=== PATIENT | male | born 1960 | race African-American/Black ===

== ENCOUNTER 2017-07-06 13:47 | Outpatient (CLI) | payer MEDICARE ==
--- NOTE | 2017-07-06 20:31 | RAD ---
RIGHT KNEE TWO VIEWS 07/06/17 No acute fracture or joint effusion was seen. There is fragmentation of the anterior tibial tubercle which is probably old, possibly even old [place]-Schlatter's. Minimal medial joint space narrowing is present but there is no substantial degenerative change. Faint calcification is seen in the popliteal artery. IMPRESSION: Chronic changes but no acute findings. POS: HOME
--- NOTE | 2017-07-06 20:33 | RAD ---
LEFT KNEE TWO VIEWS 07/06/17 Comparison is made with the 05/18/14 study. Again seen are findings of osteoarthritis consisting of medial joint space narrowing and osteophytes. A joint effusion is present today, though it was before. Overall, changes in the interval seem minim al. There is no fracture or area of bony destruction. Patellofemoral osteophytes are perhaps a little more prominent than previously. IMPRESSION: Moderate osteoarthritis with joint fluid. POS: HOME
== END 2017-07-06 13:48 | disposition home or self-care (01) ==
LOC: BUR/OP 13:47
PROVIDERS: ATTEND Anesthesiology
DX: M25.561 Pain in right knee (principal); M25.562 Pain in left knee; M17.12 Unilateral primary osteoarthritis, left knee

== ENCOUNTER 2018-04-27 21:21 | Emergency (ER) | payer MEDICARE | END 2018-04-27 22:00 | disposition home or self-care (01) | LOC: BURERS 21:21 | DX: M54.9 Dorsalgia, unspecified (principal); V40.0XXA Car driver injured in collision with pedestrian or animal in nontraffic accident, initial encounter | CPT/HCPCS: 99283 ==

== ENCOUNTER 2021-03-12 16:17 | Observation (INO) | payer MEDICARE ==
[2021-03-12 17:45] LABS: Hemoglobin 16.7 g/dL (14.0-18.0); Mean Corpuscular HGB CONC 34.6 g/dL (32.0-36.0); Mean Corpuscular Volume 89.5 fL (78.0-98.0); Mean Platelet Volume 9.4 fL (7.4-10.4); Platelet Count 223 thou/uL (130-400); RBC Distribution Width 10.4 % (11.5-14.5); Red Blood Cell (RBC) Count 5.38 mill/uL (4.70-6.10)
[2021-03-12 17:53] LABS: Anion Gap 20 mmol/L (10-20); BUN (Urea Nitrogen) 34 mg/dL (8.4-25.7); Calc. Creatinine Clearance 0 mL/min (70-130); Carbon Dioxide 25 mmol/L (23-31); Chloride 89 mmol/L (98-107); Potassium 4.4 mmol/L (3.5-5.1); Sodium 130 mmol/L (136-145)
[2021-03-12 17:54] LABS: ALT (SGPT) 52 U/L (8-55); AST (SGOT) 62 U/L (5-34); Albumin 4.2 g/dL (3.4-4.8); Alkaline Phosphatase 129 U/L (40-110); Bilirubin, Total 0.8 mg/dL (0.2-1.2); CK (CPK) 147 U/L (30-200); Calcium 9.8 mg/dL (7.8-10.44); Globulin 4.6 g/dL (2.4-3.5); Protein, Total 8.8 g/dL (5.8-8.1)
[2021-03-12 18:01] LABS: Glucose 603 mg/dL (80-115)
[2021-03-12 18:26] LABS: Band 25 % (5-11); Lymphocytes 5 % (21-51); MDiff Complete? YES; Monocytes 3 % (0-10); Neutrophil 65 % (42-75); Reactive Lymphocytes 2 % (0-10)
[2021-03-12 19:10] LABS: Base Excess-Venous -1.1 mmol/L (-2.0 to 3.0); Bicarbonate (HCO3v) 26.7 mmol/L (22.0-28.0); CO2 Tension (PvCO2) 57.2 mmHg (42.0-51.0); Calcium, Ionized 1.12 mmol/L (1.15-1.33); Chloride 94 mmol/L (98-107); Potassium 4.4 mmol/L (3.5-5.1); Sodium 132 mmol/L (138-145); T. Carbon Dioxide 28.5 mmol/L (22.0-28.0); vO2 Saturation-calc 73.2 % (60.0-85.0)
[2021-03-12] MEDS ORDERED: Insulin Regular 300 UNITS/3 ML VIAL ONE (20:24)
[2021-03-12 20:45] VITALS: BMI 29.2
[2021-03-12] MEDS ORDERED: Lantus 1000 UNITS/10 ML VIAL SC SCH (21:00)
[2021-03-12] MEDS ORDERED: Cyclobenzaprine 10 MG TAB PO PRN (21:04)
[2021-03-12] MEDS ORDERED: Dextrose 50% Abboject 50 ML SYRINGE SLOW IVP PRN (21:06)
[2021-03-12] MEDS ORDERED: Dextrose 5% in Water 1,000 ML IV PRN (21:06)
[2021-03-12] MEDS ORDERED: Acetaminophen 650 MG Suppository PR PRN (21:12)
[2021-03-12] MEDS ORDERED: Ondansetron ODT 4 MG TAB SL PRN (21:15)
[2021-03-12] MEDS: Sodium Chloride 0.9% 1,000 ML IV SCH ×2 (21:15→22:00)
[2021-03-12] MEDS ORDERED: Ondansetron PF 4 MG/2 ML Vial IVP PRN (21:15)
[2021-03-12] MEDS ORDERED: HYDROcodone/Acetaminophen 10/325 mg Tablet PO PRN (22:02)
[2021-03-12] MEDS: HumaLOG 300 UNITS/3 ML VIAL SC PRN (22:18)
[2021-03-12 22:25] LABS: SARS-CoV-2 NAA Rapid Test Not Detected (NotDetected)
[2021-03-12 23:00] LABS: Bilirubin Negative (Negative); Blood, Urine Negative (Negative); Clarity Clear (Clear); Glucose, Urine (Dipstick) 500 mg/dL (Negative); Ketone, Urine Negative (Negative); Leukocyte Negative (Negative); Nitrite Negative (Negative); Protein, Urine (Dipstick) Negative (Neg-Trace); pH, Urine 5.5 (5.0-9.0)
[2021-03-12 23:02] LABS: Urine Culture Reflex No No
[2021-03-13] MEDS: HumaLOG 300 UNITS/3 ML VIAL SC PRN ×5 (00:09→20:25)
[2021-03-13] MEDS: Sodium Chloride 0.9% 1,000 ML IV SCH ×6 (03:47→20:27)
[2021-03-13] MEDS: Allopurinol 100 MG TAB PO SCH (08:18)
[2021-03-13] MEDS: Amitriptyline HCl 25 MG TAB PO SCH (08:18)
[2021-03-13] MEDS: Montelukast Sodium 10 mg Tablet PO SCH (08:18)
[2021-03-13] MEDS: Cholecalciferol 1,000 UNITS (25 MCG) TAB PO SCH (08:18)
[2021-03-13] MEDS: HumaLOG 300 UNITS/3 ML VIAL SC SCH (08:19)
[2021-03-13 09:24] LABS: ALT (SGPT) 40 U/L (8-55); AST (SGOT) 38 U/L (5-34); Albumin 3.4 g/dL (3.4-4.8); Alkaline Phosphatase 91 U/L (40-110); Anion Gap 13 mmol/L (10-20); BUN (Urea Nitrogen) 27 mg/dL (8.4-25.7); Calc. Creatinine Clearance 58 mL/min (70-130); Calcium 8.6 mg/dL (7.8-10.44); Carbon Dioxide 28 mmol/L (23-31); Chloride 100 mmol/L (98-107); Globulin 3.6 g/dL (2.4-3.5); Glucose 202 mg/dL (80-115); Potassium 3.5 mmol/L (3.5-5.1); Sodium 137 mmol/L (136-145)
[2021-03-13 09:30] LABS: #Basophils 0.1 thou/uL (0.0-0.2); #Eosinphils 0.1 thou/uL (0.0-0.7); #Lymphocytes 1.1 thou/uL (1.20-3.40); #Monocytes 1.7 thou/uL (0.11-0.59); #Neutrophils 11.9 thou/uL (1.40-6.50); %Basophils 0.6 % (0.0-1.0); %Eosinophils 0.8 % (0.0-10.0); %Lymphocytes 7.7 % (21.0-51.0); %Monocytes 11.1 % (0.0-10.0); %Neutrophils 79.8 % (42.0-75.0); Mean Corpuscular HGB CONC 35.1 g/dL (32.0-36.0); Mean Corpuscular Hemoglobin 30.7 pg (27.0-31.0); Mean Corpuscular Volume 87.6 fL (78.0-98.0); Mean Platelet Volume 9.4 fL (7.4-10.4); Platelet Count 170 thou/uL (130-400); RBC Distribution Width 10.3 % (11.5-14.5); Red Blood Cell (RBC) Count 4.56 mill/uL (4.70-6.10); White Blood Cell (WBC) Count 14.9 thou/uL (4.8-10.8)
[2021-03-13] MEDS ORDERED: HYDROcodone/Acetaminophen 10/325 mg Tablet PO PRN (10:19)
[2021-03-13] MEDS ORDERED: HumaLOG 300 UNITS/3 ML VIAL SC SCH ×2 (12:00→17:00)
[2021-03-13] MEDS ORDERED: Lantus 1000 UNITS/10 ML VIAL SC SCH (19:20)
[2021-03-13] MEDS: Amoxicillin/Potassium Clav 875 MG TAB PO SCH (20:26)
[2021-03-13] MEDS ORDERED: Insulin Glargine 10 UNITS in Pre-Filled Syringe 1 EACH SC SCH (21:00)
[2021-03-14] MEDS: Sodium Chloride 0.9% 1,000 ML IV SCH (04:30)
[2021-03-14 05:26] LABS: #Basophils 0.1 thou/uL (0.0-0.2); #Eosinphils 0.1 thou/uL (0.0-0.7); #Lymphocytes 1.4 thou/uL (1.20-3.40); #Monocytes 1.1 thou/uL (0.11-0.59); #Neutrophils 4.5 thou/uL (1.40-6.50); %Basophils 1.5 % (0.0-1.0); %Eosinophils 0.9 % (0.0-10.0); %Lymphocytes 19.7 % (21.0-51.0); %Monocytes 14.7 % (0.0-10.0); %Neutrophils 63.1 % (42.0-75.0); Mean Corpuscular HGB CONC 34.4 g/dL (32.0-36.0); Mean Corpuscular Hemoglobin 30.6 pg (27.0-31.0); Mean Corpuscular Volume 89.1 fL (78.0-98.0); Mean Platelet Volume 9.6 fL (7.4-10.4); Platelet Count 155 thou/uL (130-400); RBC Distribution Width 10.2 % (11.5-14.5); Red Blood Cell (RBC) Count 4.24 mill/uL (4.70-6.10); White Blood Cell (WBC) Count 7.2 thou/uL (4.8-10.8)
[2021-03-14 05:41] LABS: ALT (SGPT) 31 U/L (8-55); AST (SGOT) 25 U/L (5-34); Albumin 3.1 g/dL (3.4-4.8); Alkaline Phosphatase 93 U/L (40-110); Anion Gap 13 mmol/L (10-20); BUN (Urea Nitrogen) 20 mg/dL (8.4-25.7); Bilirubin, Total 0.8 mg/dL (0.2-1.2); Calc. Creatinine Clearance 65 mL/min (70-130); Calcium 8.6 mg/dL (7.8-10.44); Carbon Dioxide 24 mmol/L (23-31); Chloride 103 mmol/L (98-107); Globulin 3.3 g/dL (2.4-3.5); Glucose 180 mg/dL (80-115); Potassium 3.3 mmol/L (3.5-5.1); Protein, Total 6.4 g/dL (5.8-8.1); Sodium 137 mmol/L (136-145)
[2021-03-14] MEDS ORDERED: Potassium Chloride 20 MEQ TAB PO SCH (06:45)
[2021-03-14] MEDS: HumaLOG 300 UNITS/3 ML VIAL SC SCH (08:02)
[2021-03-14] MEDS: HumaLOG 300 UNITS/3 ML VIAL SC PRN (08:02)
[2021-03-14] MEDS: Allopurinol 100 MG TAB PO SCH (08:44)
[2021-03-14] MEDS: Cholecalciferol 1,000 UNITS (25 MCG) TAB PO SCH (08:44)
[2021-03-14] MEDS: Amoxicillin/Potassium Clav 875 MG TAB PO SCH (08:44)
[2021-03-14] MEDS: Montelukast Sodium 10 mg Tablet PO SCH (08:44)
[2021-03-14] MEDS: Amitriptyline HCl 25 MG TAB PO SCH (08:44)
[2021-03-14 09:17] VITALS: BP 146/91; TEMP 97.8
[2021-03-14 12:29] LABS: Hemoglobin A1c 12.4 % (4.0-6.0)
== END 2021-03-14 10:43 | disposition home or self-care (01) ==
LOC: BURERS 16:17 → BURMED 20:18
PROVIDERS: ADMIT Family Medicine; ATTEND Family Medicine
DX: E11.65 Type 2 diabetes mellitus with hyperglycemia (principal); E86.0 Dehydration; N17.9 Acute kidney failure, unspecified; D72.829 Elevated white blood cell count, unspecified; E78.5 Hyperlipidemia, unspecified; I10 Essential (primary) hypertension; K21.9 Gastro-esophageal reflux disease without esophagitis; G89.4 Chronic pain syndrome; J44.9 Chronic obstructive pulmonary disease, unspecified; Z20.822 Contact with and (suspected) exposure to COVID-19; Z88.2 Allergy status to sulfonamides; Z79.899 Other long term (current) drug therapy
CPT/HCPCS: 36415; 36416; 71046; 80053; 81001; 82330; 82550; 82803; 83036; 83605; 85025; 87086; 93005; 96374; G0378; J1815; J7050; U0002

== ENCOUNTER 2022-02-17 12:31 | Outpatient (CLI) | payer MEDICARE, OTHER | END 2022-02-17 12:32 | disposition home or self-care (01) | LOC: BURRAD 12:31 | PROVIDERS: ATTEND Anesthesiology Pain Medicine | DX: M54.16 Radiculopathy, lumbar region (principal); M25.511 Pain in right shoulder; M54.2 Cervicalgia; M25.811 Other specified joint disorders, right shoulder; S53.101A Unspecified subluxation of right ulnohumeral joint, initial encounter; M50.322 Other cervical disc degeneration at C5-C6 level | CPT/HCPCS: 72040; 72110 ==

== ENCOUNTER 2022-02-21 09:06 | Outpatient (CLI) | payer OTHER | END 2022-02-21 09:07 | disposition home or self-care (01) | LOC: BURRAD 09:06 | PROVIDERS: ATTEND Family Medicine | DX: M25.50 Pain in unspecified joint (principal); I70.201 Unspecified atherosclerosis of native arteries of extremities, right leg; M25.761 Osteophyte, right knee; M25.762 Osteophyte, left knee; M25.861 Other specified joint disorders, right knee; M25.862 Other specified joint disorders, left knee; M25.462 Effusion, left knee; M11.262 Other chondrocalcinosis, left knee; M85.662 Other cyst of bone, left lower leg; M25.812 Other specified joint disorders, left shoulder ==

== ENCOUNTER 2022-10-14 00:32 | Emergency (ER) | payer OTHER ==
[2022-10-14] MEDS ORDERED: Nitroglycerin 2% Ointment 1 INCH/1 GM Packet ONE ×2 (00:53→01:14)
[2022-10-14] MEDS ORDERED: Aspirin Chewable 81 MG TAB ONE (00:53)
[2022-10-14] MEDS ORDERED: Fentanyl 100 MCG/2 ML VIAL ONE ×2 (01:01→01:47)
[2022-10-14] MEDS ORDERED: Ondansetron PF 4 MG/2 ML Vial ONE (01:03)
[2022-10-14 01:09] LABS: #Basophils 0.1 thou/uL (0.0-0.2); #Eosinphils 0.2 thou/uL (0.0-0.7); #Lymphocytes 3.9 thou/uL (1.20-3.40); #Monocytes 1.3 thou/uL (0.11-0.59); #Neutrophils 4.7 thou/uL (1.40-6.50); %Basophils 1.1 % (0.0-1.0); %Eosinophils 2.3 % (0.0-10.0); %Monocytes 12.3 % (0.0-10.0); %Neutrophils 46.2 % (42.0-75.0); Hemoglobin 14.2 g/dL (14.0-18.0); Mean Corpuscular HGB CONC 35.5 g/dL (32.0-36.0); Mean Corpuscular Volume 87.3 fl (78.0-98.0); Mean Platelet Volume 8.5 fL (7.4-10.4); Platelet Count 239 10x3/uL (130-400); RBC Distribution Width 10.9 % (11.5-14.5); Red Blood Cell (RBC) Count 4.59 mill/uL (4.70-6.10); White Blood Cell (WBC) Count 10.2 10x3/uL (4.8-10.8)
[2022-10-14 01:21] LABS: ALT (SGPT) 31 U/L (8-55); AST (SGOT) 32 U/L (5-34); Alkaline Phosphatase 113 U/L (40-110); Anion Gap 17 mmol/L (10-20); BUN (Urea Nitrogen) 17 mg/dL (8.4-25.7); Bilirubin, Total 0.6 mg/dL (0.2-1.2); Calc. Creatinine Clearance 0 mL/min (70-130); Calcium 9.3 mg/dL (7.8-10.44); Carbon Dioxide 25 mmol/L (23-31); Chloride 100 mmol/L (98-107); Estimated GFR 55; Glucose 126 mg/dL (80-115); Lipase 112 U/L (8-78); Potassium 2.7 mmol/L (3.5-5.1); Sodium 139 mmol/L (136-145)
[2022-10-14] MEDS ORDERED: Metoprolol Tartrate 5 MG/5 ML VIAL ONE (01:29)
[2022-10-14 01:39] LABS: CKMB 3.2 ng/mL (0-6.6)
== END 2022-10-14 02:50 | disposition short-term general hospital (02) ==
LOC: BURERS 00:32
DX: I24.9 Acute ischemic heart disease, unspecified (principal); K21.9 Gastro-esophageal reflux disease without esophagitis; I10 Essential (primary) hypertension; J44.9 Chronic obstructive pulmonary disease, unspecified; Z79.899 Other long term (current) drug therapy
CPT/HCPCS: 71045; 80053; 82553; 83690; 84484; 85025; 93005; 94760; 96372; 96374; 96375; 96376; J1650; J2405; J3010

== ENCOUNTER 2022-11-13 11:21 | Emergency (ER) | payer MEDICARE, OTHER ==
[2022-11-13 12:21] LABS: Bilirubin Small (Negative); Blood, Urine Large (Negative); Clarity Cloudy (Clear); Glucose, Urine (Dipstick) Negative (Negative); Ketone, Urine 15 mg/dL (Negative); Leukocyte Negative (Negative); Nitrite Negative (Negative); Protein, Urine (Dipstick) 100 mg/dL (Neg-Trace); pH, Urine 5.5 (5.0-9.0)
[2022-11-13 12:22] LABS: Bacteria/HPF 1+ HPF (None Seen); RBC/HPF Greater than 50 HPF (0-3); Specific Gravity, Urine 1.032 (1.002-1.036); Squamous Epithelial None Seen HPF (0-3)
[2022-11-13 12:24] LABS: #Basophils 0.1 thou/uL (0.0-0.2); #Eosinphils 0.4 thou/uL (0.0-0.7); #Lymphocytes 1.1 thou/uL (1.20-3.40); #Monocytes 0.5 thou/uL (0.11-0.59); #Neutrophils 3.3 thou/uL (1.40-6.50); %Basophils 1.2 % (0.0-1.0); %Eosinophils 7.5 % (0.0-10.0); %Lymphocytes 20.3 % (21.0-51.0); %Monocytes 9.4 % (0.0-10.0); %Neutrophils 61.5 % (42.0-75.0); Hemoglobin 12.8 g/dL (14.0-18.0); Mean Corpuscular HGB CONC 31.8 g/dL (32.0-36.0); Mean Corpuscular Volume 90.9 fl (78.0-98.0); Mean Platelet Volume 6.5 fL (7.4-10.4); Platelet Count 197 10x3/uL (130-400); RBC Distribution Width 12.5 % (11.5-14.5); Red Blood Cell (RBC) Count 4.43 mill/uL (4.70-6.10); White Blood Cell (WBC) Count 5.4 10x3/uL (4.8-10.8)
[2022-11-13] MEDS ORDERED: Acetaminophen 325 MG TAB ONE (12:31)
[2022-11-13 12:36] LABS: ALT (SGPT) 22 U/L (8-55); AST (SGOT) 25 U/L (5-34); Albumin 3.7 g/dL (3.4-4.8); Alkaline Phosphatase 126 U/L (40-110); Anion Gap 12 mmol/L (10-20); BUN (Urea Nitrogen) 11 mg/dL (8.4-25.7); Bilirubin, Total 0.4 mg/dL (0.2-1.2); Calc. Creatinine Clearance 0 mL/min (70-130); Calcium 9.1 mg/dL (7.8-10.44); Carbon Dioxide 24 mmol/L (23-31); Chloride 108 mmol/L (98-107); Estimated GFR 51; Globulin 3.7 g/dL (2.4-3.5); Glucose 114 mg/dL (80-115); Lipase 141 U/L (8-78); Potassium 4.1 mmol/L (3.5-5.1); Protein, Total 7.4 g/dL (5.8-8.1); Sodium 140 mmol/L (136-145)
[2022-11-13 12:37] LABS: Acetaminophen Less than 10.0 mcg/mL (10.0-30.0); Alcohol Less than 10 mg/dL (Less than 10); CK (CPK) 105 U/L (30-200); Magnesium 1.7 mg/dL (1.6-2.6); Salicylate Less than 8.0 mg/dL (15.0-30.0)
[2022-11-13] MEDS ORDERED: cefTRIAXone (ROCEPHIN) 1 GM VIAL ONE (12:57)
== END 2022-11-13 13:55 | disposition home or self-care (01) ==
LOC: BURERS 11:21
DX: N39.0 Urinary tract infection, site not specified (principal); K21.9 Gastro-esophageal reflux disease without esophagitis; I10 Essential (primary) hypertension; M10.9 Gout, unspecified; Z79.899 Other long term (current) drug therapy
CPT/HCPCS: 71045; 80053; 80307; 81003; 81015; 82550; 83605; 83690; 83735; 85025; 93005; 96365; J0696

== ENCOUNTER 2023-02-11 10:55 | Emergency (ER) | payer OTHER ==
[~2023-02-11 10:55] MED LIST: Iopamidol 370 76% 100 ML VIAL ONE
[2023-02-11] MEDS ORDERED: Morphine 4 MG/ML VIAL ONE (11:25)
[2023-02-11] MEDS ORDERED: Ondansetron PF 4 MG/2 ML Vial ONE (11:25)
[2023-02-11 11:26] LABS: Hemoglobin 14.7 g/dL (14.0-18.0); Mean Corpuscular HGB CONC 33.1 g/dL (32.0-36.0); Mean Corpuscular Hemoglobin 28.5 pg (27.0-31.0); Mean Platelet Volume 6.2 fL (7.4-10.4); Platelet Count 197 10x3/uL (130-400); RBC Distribution Width 13.2 % (11.5-14.5); Red Blood Cell (RBC) Count 5.17 mill/uL (4.70-6.10); White Blood Cell (WBC) Count 7.2 10x3/uL (4.8-10.8)
[2023-02-11 11:42] LABS: PTT 29.7 sec (22.9-36.1)
[2023-02-11 11:44] LABS: ALT (SGPT) 33 U/L (8-55); AST (SGOT) 33 U/L (5-34); Albumin 4.3 g/dL (3.4-4.8); Alkaline Phosphatase 90 U/L (40-110); Anion Gap 17 mmol/L (10-20); BUN (Urea Nitrogen) 15 mg/dL (8.4-25.7); Bilirubin, Total 0.9 mg/dL (0.2-1.2); Calc. Creatinine Clearance 0 mL/min (70-130); Calcium 9.5 mg/dL (7.8-10.44); Carbon Dioxide 19 mmol/L (23-31); Chloride 104 mmol/L (98-107); Estimated GFR 55; Glucose 125 mg/dL (80-115); Potassium 3.9 mmol/L (3.5-5.1); Protein, Total 8.3 g/dL (5.8-8.1); Sodium 136 mmol/L (136-145)
[2023-02-11 11:48] LABS: Band 2 % (5-11); Eosinophils 2 % (0-10); Lymphocytes 23 % (21-51); MDiff Complete? YES; Monocytes 16 % (0-10); Neutrophil 55 % (42-75); Platelet Adequacy Comment Appears Adequate
== END 2023-02-11 12:58 | disposition home or self-care (01) ==
LOC: BURERS 10:55
DX: R07.89 Other chest pain (principal); B34.9 Viral infection, unspecified; E11.9 Type 2 diabetes mellitus without complications; K21.9 Gastro-esophageal reflux disease without esophagitis; J44.9 Chronic obstructive pulmonary disease, unspecified; Z79.899 Other long term (current) drug therapy; Z79.82 Long term (current) use of aspirin
CPT/HCPCS: 71275; 80053; 83605; 83880; 84484; 85025; 85610; 85730; 93005; 94760; 96361; 96374; 96375; J2270; J2405; Q9967

== ENCOUNTER 2023-08-31 20:56 | Emergency (ER) | payer MEDICARE, OTHER ==
[2023-08-31 21:31] LABS: #Basophils 0.2 thou/uL (0.0-0.2); #Eosinphils 0.2 thou/uL (0.0-0.7); #Lymphocytes 2.1 thou/uL (1.20-3.40); #Monocytes 0.8 thou/uL (0.11-0.59); #Neutrophils 2.8 thou/uL (1.40-6.50); %Basophils 2.6 % (0.0-1.0); %Eosinophils 3.5 % (0.0-10.0); %Lymphocytes 33.7 % (21.0-51.0); %Monocytes 13.8 % (0.0-10.0); %Neutrophils 46.3 % (42.0-75.0); Hematocrit 43.8 % (42.0-52.0); Hemoglobin 15.5 g/dL (14.0-18.0); Mean Corpuscular HGB CONC 35.4 g/dL (32.0-36.0); Mean Corpuscular Hemoglobin 31.4 pg (27.0-31.0); Mean Corpuscular Volume 88.7 fl (78.0-98.0); Mean Platelet Volume 6.5 fL (7.4-10.4); Platelet Count 284 10x3/uL (130-400); RBC Distribution Width 10.4 % (11.5-14.5); Red Blood Cell (RBC) Count 4.94 mill/uL (4.70-6.10); White Blood Cell (WBC) Count 6.1 10x3/uL (4.8-10.8)
[2023-08-31 21:52] LABS: ALT (SGPT) 37 U/L (8-55); Albumin 4.2 g/dL (3.4-4.8); Alkaline Phosphatase 63 U/L (40-110); Anion Gap 16 mmol/L (10-20); BUN (Urea Nitrogen) 13 mg/dL (8.4-25.7); Bilirubin, Total 0.5 mg/dL (0.2-1.2); Calc. Creatinine Clearance 0 mL/min (70-130); Calcium 9.5 mg/dL (7.8-10.44); Carbon Dioxide 22 mmol/L (23-31); Chloride 105 mmol/L (98-107); Estimated GFR 52; Globulin 4.3 g/dL (2.4-3.5); Glucose 92 mg/dL (80-115); Potassium 4.2 mmol/L (3.5-5.1); Protein, Total 8.5 g/dL (5.8-8.1); Sodium 139 mmol/L (136-145)
[2023-08-31 21:54] LABS: Troponin I Less than 0.010 ng/mL (< 0.028)
[2023-08-31 21:57] LABS: AST (SGOT) 60 U/L (5-34)
[2023-08-31] MEDS ORDERED: Labetalol HCl 100 MG/20 ML VIAL ONE (22:03)
[2023-08-31] MEDS ORDERED: cefTRIAXone (ROCEPHIN) 1 GM VIAL ONE (22:16)
[2023-08-31] MEDS ORDERED: Doxycycline 100 MG CAP ONE (22:16)
== END 2023-08-31 22:46 | disposition home or self-care (01) ==
LOC: BURERS 20:56
DX: S92.411A Displaced fracture of proximal phalanx of right great toe, initial encounter for closed fracture (principal); E11.621 Type 2 diabetes mellitus with foot ulcer; L97.519 Non-pressure chronic ulcer of other part of right foot with unspecified severity; I10 Essential (primary) hypertension; J44.9 Chronic obstructive pulmonary disease, unspecified; E11.40 Type 2 diabetes mellitus with diabetic neuropathy, unspecified; K21.9 Gastro-esophageal reflux disease without esophagitis; Z79.899 Other long term (current) drug therapy; Z79.51 Long term (current) use of inhaled steroids; Z79.82 Long term (current) use of aspirin; X58.XXXA Exposure to other specified factors, initial encounter
CPT/HCPCS: 36416; 80053; 83605; 83880; 84484; 85025; 87040; 93005; 96365; 96375; 36415-59; J0696

== ENCOUNTER 2024-05-24 12:30 | Emergency (ER) | payer MEDICARE | END 2024-05-24 13:00 | disposition home or self-care (01) | LOC: BURERS 12:30 | DX: K09.8 Other cysts of oral region, not elsewhere classified (principal); K04.7 Periapical abscess without sinus; K21.9 Gastro-esophageal reflux disease without esophagitis; I10 Essential (primary) hypertension; J44.9 Chronic obstructive pulmonary disease, unspecified; I25.2 Old myocardial infarction; E11.40 Type 2 diabetes mellitus with diabetic neuropathy, unspecified; Z79.82 Long term (current) use of aspirin; Z79.899 Other long term (current) drug therapy | CPT/HCPCS: 99282 ==